=== PATIENT | male | born 1965 | race Caucasian/White ===

== ENCOUNTER 2018-12-05 09:41 | Inpatient (IN) | payer OTHER ==
[2018-12-05 09:51] VITALS: BMI 27.6
--- NOTE | 2018-12-05 13:05 | HP ---
COWS - Scale Resting Pulse: 0= [place] 80 or Below Sweatin= Chills/Flushing Restless Observation: 3= Extraneous Movement Pupil Size: 1= Pupils >than Normal Bone or Joint Aches: 2= Severe Diffuse Aches Runny Nose/ Eye Tearin= None GI Upset > 30mins: 0= None Tremor Observation: 0= None Yawning Observation: 0= None Anxiety or Irritability: 0= None Goose Flesh Skin: 0=Smooth Skin COWS Score: 7 CIWA Score Nausea/Vomitin-No Nausea/No Vomiting Muscle Tremors: 1-None Visible, but [place] Anxiety: 0-No Anxiety, at Ease Agitation: 1-Slight > Activity Paroxysmal Sweats: 2 Orientation: 0-Oriented Tacttile Disturbances: 0-None Auditory Disturbances: 1-Very Mild Visual Disturbances: 2-Mild Sensitivity Headache: 0-None Present CIWA-Ar Total Score: 7 - Admission Criteria OASAS Guidelines: Admission for Medically Managed Detox: Requires at least one of the followin. CIWA greater than 12 2. Seizures within the past 24 hours 3. Delirium tremens within the past 24 hours 4. Hallucinations within the past 24 hours 5. Acute intervention needed for co occurring medical disorder 6. Acute intervention needed for co occurring psychiatric disorder 7. Severe withdrawal that cannot be handled at a lower level of care (continued vomiting, continued diarrhea, abnormal vital signs) requiring intravenous medication and/or fluids 8. Admission ROS [facility] Allergies/Adverse Reactions: Allergies Allergy/AdvReac Type Severity Reaction Status Date / Time No Known Allergies Allergy Verified 12/05/18 11:08 History of Present Illness: patient here requesting detox from opiate use , current symptoms as above , reports IVDU 10-14 bags / day in left arm , needles from the store , denies sharing , + re-using , + abscess in the past most recently 2 years ago , OD x 2017 , Narcan by EMT / police in [place] . Latest use last night - this morning 12 MN . Patient states he was at this facility last night , no beds available, [place] the subway [place] night [place] for a bed, currently reports fatigue as main symptom. etoh : 1 pint /day x 3 years , reports cannot eat if not drinking , denies seizures , + blackouts , + falls while intoxicated , fell 2 weeks ago , did not go to hospital states had abrasion on left arm , starts drinking around 9 a.m. Prior ETOH moderate use. PMHx : denies PSHx : denies PSych : denies Meds : denies utox + fen , opi tobacco : 1 ppd . Shx: homeless , part-time work ( tiles ). Exam Limitations: Clinical Condition - Ebola screening Have you traveled outside of the country in the last 21 days: No Have you had contact with anyone from an Ebola affected area: No Have you been sick,other than usual withdrawal symptoms: No Do you have a fever: No - Review of Systems Constitutional: See HPI EENT: reports: Other (denies vision problems) Respiratory: reports: No Symptoms reported Cardiac: reports: No Symptoms Reported GI: reports: See HPI : reports: No Symptoms Reported Musculoskeletal: reports: See HPI Integumentary: reports: See HPI Neuro: reports: No Symptoms reported Endocrine: reports: No Symptoms Reported Psychiatric: reports: No Sypmtoms Reported, Orientated x3 Patient History - Patient Medical History Hx Asthma: No Hx Chronic Obstructive Pulmonary Disease (COPD): No Hx Cardiac Disorders: No Hx Hypertension: No Hx Seizures: No Hx Diabetes: No Hx Gastrointestinal Disorders: No Hx Genitourinary Disorders: No Hx Sexually Transmitted Disorders: No Hx Renal Disease (ESRD): No Hx Depression: No Hx Suicide Attempt: No Hx Schizophrenia: No - Patient Surgical History Past Surgical History: No - PPD History Previous Implant?: Yes Documented Results: Negative w/o proof Implanted On Prior [facility] Admission?: No - Smoking Cessation Smoking history: Current every day smoker Have you smoked in the past 12 months: Yes Aproximately how many cigarettes per day: 20 Hx Chewing Tobacco Use: No Initiated information on smoking cessation: No - Substances Abused Heroin Route: Injection Frequency: Daily Amount used: 12-14 BAGS Age of first use: 28 Date of Last Use: 12/04/18 Alcohol Route: Oral Frequency: Daily Amount used: 1 AND 1/2 PINTS RUM Age of first use: 31 Date of Last Use: 12/04/18 Family Disease History - Family Disease History Family History: Denies Admission Physical Exam [facility] - Vital Signs Vital Signs: Vital Signs - 24 hr 12/05/18 09:49 Temperature 99.0 F Pulse Rate 78 Respiratory 18 Rate Blood Pressure 138/86 - Physical General Appearance: Yes: Disheveled, Moderate Distress HEENTM: Yes: EOMI, Normocephalic, Normal Voice, Other (poor dentition) Respiratory: Yes: Chest Non-Tender, Lungs Clear, Normal Breath Sounds Neck: Yes: No masses,lesions,Nodules, Trachea in good position Breast: Yes: Breast Exam Deferred Cardiology: Yes: Regular Rhythm, Regular Rate, S1, S2 Abdominal: Yes: Normal Bowel Sounds, Soft Genitourinary: Yes: Within Normal Limits Musculoskeletal: Yes: full range of Motion, Gait Steady Extremities: Yes: Normal Capillary Refill Neurological: Yes: Fully Oriented, Alert Integumentary: Yes: Normal Color Lymphatic: Yes: Within Normal Limits - Diagnostic (1) Opiate dependence Current Visit: Yes Status: Acute Qualifiers: Substance use status: in withdrawal Qualified Code(s): F11.23 - Opioid dependence with withdrawal (2) Alcohol dependence Current Visit: Yes Status: Acute Qualifiers: Substance use status: in withdrawal (3) Nicotine dependence Current Visit: Yes Status: Chronic Qualifiers: Nicotine product type: cigarettes BHS Breath Alcohol Content Breath Alcohol Content: 0 Urine Drug Screen - Results Drug Screen Negative: No Urine Drug Screen Results: OPI-Opiates, FEN-Fentanyl
[2018-12-05] MEDS ORDERED: P-EPHED 60MG/TRIPROLIDI 2.5MG TABLET PO PRN (13:11)
[2018-12-05] MEDS ORDERED: MAGNESIUM HYDROX 2400MG/30ML ORAL SUSPENSION 30 ML CUP PO PRN (13:11)
[2018-12-05] MEDS ORDERED: guaiFENesin/D-METHORPHAN HB 10 ML UNIT-DOSE CUPS PO PRN (13:11)
[2018-12-05] MEDS ORDERED: NICOTINE POLACRILEX 2 MG GUM BUC PRN (13:11)
[2018-12-05] MEDS ORDERED: METHADONE HCL 10 MG TABLET (FOR DETOX USE ONLY) PO ONE ×2 (13:11→23:00)
[2018-12-05] MEDS ORDERED: ACETAMINOPHEN 325 MG TABLET (FP) PO PRN (13:11)
[2018-12-05] MEDS ORDERED: MAG HYDROX/AL HYDROX/SIMETH 30 ML UNIT-DOSE CUP PO PRN (13:11)
[2018-12-05] MEDS ORDERED: IBUPROFEN 400 MG TABLET (FP) PO PRN (13:11)
[2018-12-05] MEDS ORDERED: MENTHOL/PHENOL 1 EACH UD MM PRN (13:11)
[2018-12-05] MEDS ORDERED: MAGNESIUM CITRATE 300 ML BOTTLE PO PRN (13:11)
[2018-12-05] MEDS ORDERED: diazePAM 5 MG TABLET PO PRN (13:11)
[2018-12-05] MEDS: diazePAM 5 MG TABLET PO SCH ×2 (14:42→22:12)
[2018-12-05] MEDS ORDERED: MELATONIN 5 MG TABLETS PO PRN (22:00)
[2018-12-05] MEDS: THIAMINE HCL 100 MG TABLET (FP) PO SCH (22:12)
[2018-12-06] MEDS: diazePAM 5 MG TABLET PO SCH ×3 (05:49→22:25)
[2018-12-06] MEDS ORDERED: METHADONE HCL 10 MG TABLET (FOR DETOX USE ONLY) PO SCH (10:00)
[2018-12-06] MEDS: PRENATAL VITAMINS W/ FOLIC ACID TABLET (FP) PO SCH (10:41)
--- NOTE | 2018-12-06 14:48 | PN ---
S CIWA - CIWA Score Nausea/Vomitin-No Nausea/No Vomiting Muscle Tremors: 4-Moderate,w/Arms Extend Anxiety: 3 Agitation: 1-Slight > Activity Paroxysmal Sweats: 3 Orientation: 0-Oriented Tacttile Disturbances: 0-None Auditory Disturbances: 0-None Visual Disturbances: 2-Mild Sensitivity Headache: 0-None Present CIWA-Ar Total Score: 13 [facility] COWS - Scale Resting Pulse: 0= [place] 80 or Below Sweatin= Chills/Flushing Restless Observation: 0= Sits Still Pupil Size: 0= Normal to Room Light Bone or Joint Aches: 0= None Runny Nose/ Eye Tearin= Nasal Congestion GI Upset > 30mins: 5=Frequent Vomit/Diarrhea Tremor Observation of Outstretched Hands: 2= Slight Tremor Visible Yawning Observation: 1= 1-2x During Session Anxiety or Irritability: 2=Irritable/Anxious Goose Flesh Skin: 0=Smooth Skin COWS Score: 12 [facility] Progress Note (SOAP) Subjective: Sweating, Tremors, Interrupted Sleep. Objective: PATIENT A & O X 3. IN NO ACUTE DISTRESS. 12/06/18 14:46 Vital Signs Temperature 97.3 F L 12/06/18 13:29 Pulse Rate 64 12/06/18 13:29 Respiratory Rate 18 12/06/18 13:29 Blood Pressure 116/69 12/06/18 13:29 O2 Sat by Pulse Oximetry (%) ADMISSION LAB RESULTS PENDING. 12/06/18 14:47 Assessment: 12/06/18 14:47 WITHDRAWAL SYMPTOMS. Plan: CONTINUE DETOX.
[2018-12-06] MEDS: THIAMINE HCL 100 MG TABLET (FP) PO SCH (22:24)
[2018-12-07] MEDS ORDERED: METHADONE HCL 5 MG TABLET (FOR DETOX USE ONLY) PO SCH (10:00)
[2018-12-07] MEDS: diazePAM 5 MG TABLET PO SCH ×2 (10:35→22:25)
[2018-12-07] MEDS: PRENATAL VITAMINS W/ FOLIC ACID TABLET (FP) PO SCH (10:35)
[2018-12-07] MEDS ORDERED: cloNIDine HCL 0.1 MG TABLET PO PRN (15:26)
--- NOTE | 2018-12-07 15:27 | PN ---
S CIWA - CIWA Score Nausea/Vomitin Muscle Tremors: 3 Anxiety: 3 Agitation: 3 Paroxysmal Sweats: 3 Orientation: 0-Oriented Tacttile Disturbances: 0-None Auditory Disturbances: 0-None Visual Disturbances: 0-None Headache: 0-None Present CIWA-Ar Total Score: 14 S COWS - Scale Resting Pulse: 1= [place] 81-100 Sweatin=Flushed/Facial Moisture Restless Observation: 3= Extraneous Movement Pupil Size: 0= Normal to Room Light Bone or Joint Aches: 2= Severe Diffuse Aches Runny Nose/ Eye Tearin= None GI Upset > 30mins: 1= Stomach Cramp Tremor Observation of Outstretched Hands: 2= Slight Tremor Visible Yawning Observation: 0= None Anxiety or Irritability: 2=Irritable/Anxious Goose Flesh Skin: 0=Smooth Skin COWS Score: 13 [facility] Progress Note (SOAP) Subjective: Sweating, anxious, interrupted sleep Objective: 12/07/18 15:23 Last Vital Signs Temp Pulse Resp BP Pulse Ox 98.1 F 82 20 146/91 12/07/18 14:12 12/07/18 14:12 12/07/18 14:12 12/07/18 14:12 Elevated b/p noted (denies htn) No admission labs (will reorder in AM) Assessment: 12/07/18 15:24 Withdrawal symptoms Noted with elevated b/p Plan: Continue detox Encouraged PO water hydration Elevated b/p: could be r/t withdrawal; start clonidine 0.1mg PO q8hr prn if b/p > 140/90
[2018-12-07] MEDS: THIAMINE HCL 100 MG TABLET (FP) PO SCH (22:25)
[2018-12-08] MEDS ORDERED: METHADONE HCL 10 MG TABLET (FOR DETOX USE ONLY) PO SCH (10:00)
[2018-12-08 10:19] LABS: ALBUMIN 3.1 g/dl (3.4-5.0); ALK PHOS 77 U/L (45-117); ANION GAP 4 MMOL/L (8-16); BILIRUBIN,TOTAL 0.2 mg/dL (0.2-1); BLOOD UREA NITROGEN 13 mg/dL (7-18); CALCIUM 8.3 mg/dL (8.5-10.1); CHLORIDE 107 mmol/L (98-107); CO2 32 mmol/L (21-32); CREATININE 0.7 mg/dL (0.55-1.3); GLUCOSE,RANDOM 95 mg/dL (74-106); POTASSIUM 4.2 mmol/L (3.5-5.1); SGOT/AST 39 U/L (15-37); SGPT/ALT 63 U/L (13-61); SODIUM 143 mmol/L (136-145); TOT PROT 5.8 g/dl (6.4-8.2)
[2018-12-08 10:33] LABS: BASO % 0.3 % (0-2.0); EOS % 4.7 % (0-4.5); HEMATOCRIT 39.9 % (35.4-49); HEMOGLOBIN 13.8 GM/dL (11.7-16.9); LYMPH % 30.8 % (8-40); MCH 30.9 pg (25.7-33.7); MCHC 34.5 g/dl (32.0-35.9); MEAN CELL VOLUME 89.6 fl (80-96); MONO % 10.6 % (3.8-10.2); NEUT % 53.6 % (42.8-82.8); PLATELET COUNT 192 K/MM3 (134-434); RBC 4.45 M/mm3 (4.00-5.60); RDW 14.4 % (11.9-15.9)
[2018-12-08] MEDS: PRENATAL VITAMINS W/ FOLIC ACID TABLET (FP) PO SCH (10:34)
[2018-12-08] MEDS: diazePAM 5 MG TABLET PO SCH ×2 (10:34→22:22)
--- NOTE | 2018-12-08 14:23 | PN ---
BHS Progress Note (SOAP) Subjective: feeling better less tremor mild sweating tolerate food and fluid better right anticubital chronic abscess x 2 years "doctor said I have mersa" about 1 cm round no drainage skin color abscess hard on palpated elbow full rnage of motion denies pain Objective: 12/08/18 14:21 Vital Signs Temperature 97.0 F L 12/08/18 14:00 Pulse Rate 89 12/08/18 14:00 Respiratory Rate 18 12/08/18 14:00 Blood Pressure 123/95 12/08/18 14:00 O2 Sat by Pulse Oximetry (%) Laboratory Last Values WBC 4.0 K/mm3 (4.0-10.0) 12/08/18 08:15 RBC 4.45 M/mm3 (4.00-5.60) 12/08/18 08:15 Hgb 13.8 GM/dL (11.7-16.9) 12/08/18 08:15 Hct 39.9 % (35.4-49) 12/08/18 08:15 MCV 89.6 fl (80-96) 12/08/18 08:15 MCH 30.9 pg (25.7-33.7) 12/08/18 08:15 MCHC 34.5 g/dl (32.0-35.9) 12/08/18 08:15 RDW 14.4 % (11.9-15.9) 12/08/18 08:15 Plt Count 192 K/MM3 (134-434) 12/08/18 08:15 MPV 9.0 fl (7.5-11.1) 12/08/18 08:15 Absolute Neuts (auto) 2.2 K/mm3 (1.5-8.0) 12/08/18 08:15 Neutrophils % 53.6 % (42.8-82.8) 12/08/18 08:15 Lymphocytes % 30.8 % (8-40) 12/08/18 08:15 Monocytes % 10.6 % (3.8-10.2) H 12/08/18 08:15 Eosinophils % 4.7 % (0-4.5) H 12/08/18 08:15 Basophils % 0.3 % (0-2.0) 12/08/18 08:15 Nucleated RBC % 0 % (0-0) 12/08/18 08:15 Sodium 143 mmol/L (136-145) 12/08/18 08:15 Potassium 4.2 mmol/L (3.5-5.1) 12/08/18 08:15 Chloride 107 mmol/L (98-107) 12/08/18 08:15 Carbon Dioxide 32 mmol/L (21-32) 12/08/18 08:15 Anion Gap 4 MMOL/L (8-16) L 12/08/18 08:15 BUN 13 mg/dL (7-18) 12/08/18 08:15 Creatinine 0.7 mg/dL (0.55-1.3) 12/08/18 08:15 Creat Clearance w eGFR > 60 (>60) 12/08/18 08:15 Random Glucose 95 mg/dL (74-106) 12/08/18 08:15 Calcium 8.3 mg/dL (8.5-10.1) L 12/08/18 08:15 Total Bilirubin 0.2 mg/dL (0.2-1) 12/08/18 08:15 AST 39 U/L (15-37) H 12/08/18 08:15 ALT 63 U/L (13-61) H 12/08/18 08:15 Alkaline Phosphatase 77 U/L (45-117) 12/08/18 08:15 Total Protein 5.8 g/dl (6.4-8.2) L 12/08/18 08:15 Albumin 3.1 g/dl (3.4-5.0) L 12/08/18 08:15 RPR Titer Nonreactive (NONREACTIVE) 12/08/18 08:15 lab noted Assessment: 12/08/18 14:22 withdrawal sx chronic right anticubital abscess in remission at this time Plan: continue detox encourage warm compress
[2018-12-08] MEDS: THIAMINE HCL 100 MG TABLET (FP) PO SCH (22:22)
[2018-12-09] MEDS ORDERED: METHADONE HCL 5 MG TABLET (FOR DETOX USE ONLY) PO SCH (06:00)
[2018-12-09 06:11] VITALS: BP 123/75; PULSE 62; TEMP 97.5
[2018-12-09] MEDS ORDERED: diazePAM 5 MG TABLET PO SCH (10:00)
--- NOTE | 2018-12-09 21:06 | DS ---
[facility] Detox Discharge Summary Admission Date: 12/05/18 Discharge Date: 12/09/18 - History Present History: Alcohol Dependence, Opioid Dependence Additional Comments: PATIENT LEFT DETOX UNIT PRIOR TO TIME OF ARRIVAL OF [employer]. THUS, PRE-DISCHARGE MEDICAL ASSESSMENT UNABLE TO BE DONE. PER PATIENT'S COUNSELOR (Karlos ROUSE) , PATIENT REFERRED TO [facility] ([place], [place]) AND [facility] ([place], [place]) FOR AFTERCARE. Pertinent Past History: Nicotine Dependence. - Physical Exam Results Vital Signs: Vital Signs Temperature 97.5 F L 12/09/18 06:10 Pulse Rate 62 12/09/18 06:10 Respiratory Rate 18 12/09/18 06:10 Blood Pressure 123/75 12/09/18 06:10 O2 Sat by Pulse Oximetry (%) Pertinent Admission Physical Exam Findings: WITHDRAWAL SYMPTOMS. Laboratory Tests 12/08/18 12/08/18 12/08/18 08:15 08:15 08:15 WBC 4.0 RBC 4.45 Hgb 13.8 Hct 39.9 MCV 89.6 MCH 30.9 MCHC 34.5 RDW 14.4 Plt Count 192 MPV 9.0 Absolute Neuts (auto) 2.2 Neutrophils % 53.6 Lymphocytes % 30.8 Monocytes % 10.6 H Eosinophils % 4.7 H Basophils % 0.3 Nucleated RBC % 0 Sodium 143 Potassium 4.2 Chloride 107 Carbon Dioxide 32 Anion Gap 4 L BUN 13 Creatinine 0.7 Creat Clearance w eGFR > 60 Random Glucose 95 Calcium 8.3 L Total Bilirubin 0.2 AST 39 H ALT 63 H Alkaline Phosphatase 77 Total Protein 5.8 L Albumin 3.1 L RPR Titer Nonreactive LABS NOTED. - Treatment Hospital Course: Detox Protocol Followed, Detoxed Safely, Responded well, Discharged Condition Good Patient has Accepted a Rehab Referral to: [facility] ( [place], [place]) - Medication Discharge Medications: Ambulatory Orders NK [No Known Home Medication] 12/05/18 - Diagnosis (1) Alcohol dependence Status: Acute Qualifiers: Substance use status: in withdrawal Complication of substance-induced condition: uncomplicated Qualified Code(s): F10.230 - Alcohol dependence with withdrawal, uncomplicated (2) Opiate dependence Status: Acute Qualifiers: Substance use status: in withdrawal Qualified Code(s): F11.23 - Opioid dependence with withdrawal (3) Nicotine dependence Status: Chronic Qualifiers: Nicotine product type: cigarettes Substance use status: uncomplicated Qualified Code(s): F17.210 - Nicotine dependence, cigarettes, uncomplicated - AMA Did Patient Leave Against Medical Advice: No
== END 2018-12-09 08:42 | disposition home or self-care (01) | DRG 773 ==
LOC: YASAS 09:41 → Y3N 13:25
PROC: HZ2ZZZZ Detoxification Services for Substance Abuse Treatment (ICD-10-PCS; principal; 2018-12-05)
DX: F11.23 Opioid dependence with withdrawal (principal); F10.230 Alcohol dependence with withdrawal, uncomplicated; F17.210 Nicotine dependence, cigarettes, uncomplicated; R03.0 Elevated blood-pressure reading, without diagnosis of hypertension
CPT/HCPCS: 36415; 80053; 85025; 86593